=== PATIENT | male | born 1990 | race Caucasian/White ===

== ENCOUNTER 2021-11-22 08:04 | Emergency (ER) | payer BC, MEDICAID ==
[2021-11-22 08:12] VITALS: BP 151/84
[2021-11-22] MEDS ORDERED: SILVER SULFADIAZINE CREAM 25 GM TUBE TOP STA (08:29)
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
== END 2021-11-22 08:57 | disposition home or self-care (01) ==
LOC: ED 08:04
DX: T23.252A Burn of second degree of left palm, initial encounter (principal); T23.251A Burn of second degree of right palm, initial encounter; T23.271A Burn of second degree of right wrist, initial encounter; W01.198A Fall on same level from slipping, tripping and stumbling with subsequent striking against other object, initial encounter; X16.XXXA Contact with hot heating appliances, radiators and pipes, initial encounter; Z87.891 Personal history of nicotine dependence
CPT/HCPCS: 16020; 99282; A9270